=== PATIENT | female | born 1955 ===

== ENCOUNTER 2021-08-04 18:00 | Emergency (ER) | payer OTHER ==
[~2021-08-04] VITALS: Ht 172.7 cm; Wt 84.8 kg
[2021-08-04] MEDS ORDERED: LIDOCAINE 1% HCL (LOCAL ANESTH.) INJ 20ML MDV IJ ONE (23:15)
[2021-08-04 23:52] VITALS: BP 149/81
[2021-08-05] MEDS ORDERED: HYDROcodone-ACET 5/325MG TAB PO ONE (00:15)
[2021-08-05] MEDS ORDERED: NEOMYCIN-BACITRACIN-POLYM UNITDOSE PKG TOP OINT TOP ONE (00:15)
[2021-08-05] MEDS ORDERED: BACITRACIN TOP OINT 1 UD PKG TOP ONE (00:15)
== END 2021-08-05 00:34 | disposition home or self-care (01) ==
LOC: ER 18:00
DX: S92.422A Displaced fracture of distal phalanx of left great toe, initial encounter for closed fracture (principal); S91.112A Laceration without foreign body of left great toe without damage to nail, initial encounter; G89.29 Other chronic pain; M54.9 Dorsalgia, unspecified; W23.0XXA Caught, crushed, jammed, or pinched between moving objects, initial encounter; Y93.89 Activity, other specified; Y92.89 Other specified places as the place of occurrence of the external cause; Y99.8 Other external cause status
CPT/HCPCS: 12002; 73630; 99283; J2001; L3260